=== PATIENT | male | born 1980 | race American Indian/Alaskan Native ===

== ENCOUNTER 2021-06-05 21:19 | Emergency (ER) | payer SELFPAY ==
--- NOTE | 2021-06-05 22:02 | Emergency Department Report ---
ED Psych HPI - General Stated Complaint: SHUN EVAL Time Seen by Provider: 06/05/21 21:44 Source: patient - History of Present Illness Initial Comments: Patient is 40 years old male with history of schizoaffective disorder. Patient brought to the emergency room for evaluation of suicidal thoughts. Patient stated that he is hearing voices asking him to kill himself. Patient stated that he does not have a specific plan but he cut his wrist before. Patient denied any visual hallucination. No homicidal ideation. MD Complaint: suicidal ideation, feels depressed -: days(s) Associated Psychiatric Symptoms: depression, suicidal ideation, auditory halluc inations Quality: constant Associated Symptoms: denies other symptoms If Self Harm: admits thoughts of - Related Data Allergies Allergy/AdvReac Type Severity Reaction Status Date / Time No Known Allergies Allergy Verified 06/05/21 22:10 ED Review of Systems ROS: Stated complaint: SHUN EVAL Other details as noted in HPI Comment: All other systems reviewed and negative Constitutional: denies: chills, fever Respiratory: denies: cough, shortness of breath, SOB with exertion Cardiovascular: denies: chest pain, palpitations Gastrointestinal: denies: abdominal pain, nausea, vomiting Musculoskeletal: denies: back pain Neurological: denies: weakness Psychiatric: depression, auditory hallucinations, suicidal thoughts. denies: visual hallucinations, homicidal thoughts ED Physical Exam - General General appearance: alert, in no apparent distress - Head Head exam: Present: atraumatic, normocephalic, normal inspection - Eye Eye exam: Present: normal appearance - ENT ENT exam: Present: normal exam, normal orophraynx, mucous membranes moist - Neck Neck exam: Present: normal inspection, full ROM. Absent: tenderness, meningismus - Respiratory Respiratory exam: Present: normal lung sounds bilaterally - Cardiovascular Cardiovascular Exam: Present: regular rate, normal rhythm, normal heart sounds - GI/Abdominal GI/Abdominal exam: Present: soft - Back Exam Back exam: Present: normal inspection, full ROM. Absent: CVA tenderness (R), CVA tenderness (L) - Neurological Exam Neurological exam: Present: alert, oriented X3, CN II-XII intact, normal gait, reflexes normal. Absent: motor sensory deficit - Psychiatric Psychiatric exam: Present: depressed, suicidal ideation. Absent: homicidal ideation - Skin Skin exam: Present: warm, intact, normal color ED Course Vital Signs 06/05/21 06/06/21 06/06/21 22:06 02:52 11:42 Temperature 98.3 F 98.6 F 97.3 F L Pulse Rate 88 70 69 Respiratory 17 16 20 Rate Blood Pressure 102/68 123/83 126/84 [Left] O2 Sat by Pulse 97 96 96 Oximetry 06/06/21 06/06/21 06/07/21 16:22 20:30 02:09 Temperature 98.4 F 98.7 F Pulse Rate 74 63 Respiratory 16 16 Rate Blood Pressure 116/81 120/73 [Left] O2 Sat by Pulse 99 98 97 Oximetry 06/07/21 06/07/21 08:12 13:23 Temperature 98.6 F Pulse Rate 76 Respiratory 18 Rate Blood Pressure 122/87 [Left] O2 Sat by Pulse 99 100 Oximetry ED Medical Decision Making - Lab Data Result diagrams: 06/05/21 22:26 06/05/21 22:26 Critical care attestation.: If time is entered above; I have spent that time in minutes in the direct care of this critically ill patient, excluding procedure time. ED Disposition Clinical Impression: Suicidal ideation Disposition: [address] [place] [address] Is pt being admited?: No Condition: Stable Additional Instructions: Professional and Agency Contacts To help [facility] (27/03) [place] Crisis Line: Suicide Prevention Line: Crisis Text Line: Text START to 655854 Emergency: 911 Outpatient [facility] Behavioral Health Resources: [place]: [facility] [address], [place] [address] [facility] [address] [place] [address] Monday thru Monday - 8am - 5pm Call to schedule an assessment for mental health and substance abuse programs [facility] Address: [address] [place] [address] Monday thru Monday- 7am-2pm [facility] Address: [address] [place] [address] Monday thru Monday: 8:30AM-5PM Referrals: PRIMARY CARE, [Primary Care Provider] - 3-5 Days
[2021-06-05 22:50] LABS: Basophils # (Auto) 0.1 K/mm3 (0.0-0.1); Basophils % (Auto) 0.7 % (0.0-1.8); Eosinophils # (Auto) 0.2 K/mm3 (0.0-0.4); Eosinophils % (Auto) 1.9 % (0.0-4.3); Hematocrit 45.3 % (35.5-45.6); Lymphocytes # (Auto) 3.7 K/mm3 (1.2-5.4); Lymphocytes % (Auto) 43.4 % (13.4-35.0); Mean Corpuscular HGB Conc 33 % (32-34); Mean Corpuscular Volume 88 fl (84-94); Monocytes # (Auto) 0.6 K/mm3 (0.0-0.8); Monocytes % (Auto) 7.6 % (0.0-7.3); Platelet Count 251 K/mm3 (140-440); Red Blood Count 5.15 M/mm3 (3.65-5.03); Red Cell Distribution Width 15.4 % (13.2-15.2)
[2021-06-05 23:02] LABS: Alanine Aminotransferase 11 units/L (7-56); Albumin 4.4 g/dL (3.9-5); BUN/Creatinine Ratio 10; Blood Urea Nitrogen 10 mg/dL (9-20); Calcium 9.5 mg/dL (8.4-10.2); Hemolysis Index 13
[2021-06-05 23:03] LABS: Bilirubin,Direct < 0.2 mg/dL (0-0.2)
[2021-06-06 02:20] LABS: Bacteria,Urine 1+ /HPF (Negative); Bilirubin,Urine SM (Negative); Blood,Urine NEG (Negative); Color,Urine Amber (Yellow); Mucus,Urine 1+ /HPF
[2021-06-06 02:27] LABS: Amphetamine Screen,Urine PRESUMPTIVE NEGATIVE; Benzodiazepines Screen,Urine PRESUMPTIVE NEGATIVE; Cannabinoid Screen,Urine PRESUMPTIVE POSITIVE; Cocaine Screen,Urine PRESUMPTIVE POSITIVE; Methadone Screen,Urine PRESUMPTIVE NEGATIVE; Opiate Screen,Urine PRESUMPTIVE NEGATIVE
[2021-06-06 02:32] LABS: Ictotest,Urine Negative (Negative)
--- NOTE | 2021-06-06 09:56 | Consultation ---
History of Present Illness - Reason for Consult Consult date: 06/06/21 Reason for consult: Mental health evaluation - History of Present Psychiatric Illness Per ED Note: Patient is 40 years old male with history of schizoaffective disorder. Patient brought to the emergency room for evaluation of suicidal thoughts. Patient stated that he is hearing voices asking him to kill himself. Patient stated that he does not have a specific plan but he cut his wrist before. Patient denied any visual hallucination. No homicidal ideation. Timur Hernandez is a 40 year old male with history of Bipolar, Schizoaffective who present to the ED for mental health evaluation. In my interview with the patient, he is in seclusion and verbally aggressive. The patient is angry and loud, he states " I'm trying to ask for help; I live in [facility] moved here a couple of months ago." The patient endorses suicidal ideation without a specific plan. He denies hallucinations. Psych History Diagnoses: Bipolar, Schizoaffective Suicide attempts or Self-harm behavior:Unknown Prior psychiatric hospitalizations: Yes Substance Abuse history:Unknown Previous psychiatric medications tried:Thorazine " many" Outpatient treatment: Denies PAST MEDICAL HISTORY: none reported Family Psychiatric History: None reported or documented SOCIAL HISTORY Marital Status: Single Living Arrangements: homeless Employment Status:unemployed Access to guns/weapons: unknown Education: 12th grade History of Abuse: Denies Legal History: None reported REVIEW OF SYSTEMS Constitutional: Negative for weight loss ENT: Negative for stridor Respiratory: Negative for cough or hemoptysis All other systems reviewed and are negative MENTAL STATUS EXAMINATION General Appearance and Behavior: Age appropriate, good hygiene, wearing appropriate clothes, sleeping, cooperative Cooperation: aggressive Psychomotor Behavior: unremarkable and within normal limits Mood: Angry Affect and affective range: congruent with mood Thought Process:Goal directed Thought Content: Suicidal Speech: Normal volume, Regular rate and rhythm, Suicidal Ideation: Yes Homicidal Ideation:Denies Hallucinations:Yes- Denies Delusions: None elicited Impulse Control: Questionable Insight and Judgment: Limited insight and poor judgment, Memory: Normal, Attention: Normal Orientation: Alert, oriented Assessment and Plan (1)Schizoaffective disorder, Bipolar type- F25.0 Treatment plan Continue 1013 Start Zyprexa 10mg Start Depakote 250mg po BID Risks, benefits and alternatives of medications discussed with the patient, questions answered and consent obtained from patient. PSYCHOTHERAPY: Supportive psychotherapy provided MEDICAL: Per primary team DELIRIUM PRECAUTIONS: Please re-orient patient frequently, keep lights on during the day, and minimize benzodiazepines and opiates as these medications could worsen patient's confusion. WEB SITE DEVELOPER: Defer to primary Disposition: Recommend acute psychiatric inpatient treatment. Will follow. Thank you for the consult. Please contact with any questions and/or concerns. Case staffed with Dr. Arroyo Medications and Allergies Allergies Allergy/AdvReac Type Severity Reaction Status Date / Time No Known Allergies Allergy Verified 06/05/21 22:10 Mental Status Exam - Vital signs Last Vital Signs Temp 98.6 F 06/06/21 02:52 Pulse 70 06/06/21 02:52 Resp 16 06/06/21 02:52 BP 123/83 06/06/21 02:52 Pulse Ox 96 06/06/21 02:52 Results Result Diagrams: 06/05/21 22:26 06/05/21 22:26 Abnormal lab results 06/05/21 06/05/21 06/05/21 Range/Units 22:26 22:26 22:26 RBC 5.15 H (3.65-5.03) M/mm3 RDW 15.4 H (13.2-15.2) % Lymph % (Auto) 43.4 H (13.4-35.0) % [place] % (Auto) 7.6 H (0.0-7.3) % Ur Specific [place] (1.003-1.030) Salicylates < 0.3 L (2.8-20.0) mg/dL Acetaminophen 5.0 L (10.0-30.0) ug/mL Plasma/Serum Alcohol (0-0.07) % 06/05/21 06/06/21 Range/Units 22:26 00:30 RBC (3.65-5.03) M/mm3 RDW (13.2-15.2) % Lymph % (Auto) (13.4-35.0) % [place] % (Auto) (0.0-7.3) % Ur Specific [place] 1.032 H (1.003-1.030) Salicylates (2.8-20.0) mg/dL Acetaminophen (10.0-30.0) ug/mL Plasma/Serum Alcohol 0.08 H (0-0.07) % All other labs normal.
[2021-06-06] MEDS ORDERED: diphenhydrAMINE 50 MG/ML VIAL IM PRN (10:38)
[2021-06-06] MEDS ORDERED: HALOPERIDOL LACTATE 5 MG/1 ML INJ IM PRN (10:38)
[2021-06-06] MEDS ORDERED: LORazepam 2 MG/ML VIAL IM PRN (10:38)
--- NOTE | 2021-06-06 10:38 | Event Note ---
Date: 06/06/21 S: Patient reportedly became verbally abusive to staff this morning at approximately 07: 00 when inquiring about breakfast. The patient had to be placed in seclusion O: Vital Signs - 24 hr 06/06/21 06/06/21 06/06/21 11:42 16:22 20:30 Temperature 97.3 F L 98.4 F Pulse Rate 69 74 Respiratory 20 16 Rate Blood Pressure 126/84 116/81 [Left] O2 Sat by Pulse 96 99 98 Oximetry A: Schizoaffective disorder, bipolar disorder P: 1013/awaiting inpatient psych. Will order as needed meds for agitation
[2021-06-06] MEDS: DIVALPROEX DR 250 MG TAB PO SCH ×2 (12:23→22:20)
[2021-06-07 08:14] VITALS: BP 122/87
--- NOTE | 2021-06-07 10:32 | Progress Note ---
Subjective - Reason for Consult Consult date: 06/07/21 Reason for consult: SI - Chief Complaint Chief complaint: The patient was seen resting quietly. He reports feeling better. The patient continues to endorse suicidal ideation without a plan. He denies homicidal ideation and denies hallucinations. REVIEW OF SYSTEMS Constitutional: Negative for weight loss ENT: Negative for stridor Respiratory: Negative for cough or hemoptysis All other systems reviewed and are negative MENTAL STATUS EXAMINATION General Appearance and Behavior: Age appropriate, good hygiene, wearing appropriate clothes, sleeping, cooperative Cooperation: aggressive Psychomotor Behavior: unremarkable and within normal limits Mood: "OK Affect and affective range: congruent with mood Thought Process:Goal directed Thought Content: Suicidal Speech: Normal volume, Regular rate and rhythm, Suicidal Ideation: Yes Homicidal Ideation:Denies Hallucinations:Yes- Denies Delusions: None elicited Impulse Control: Questionable Insight and Judgment: Limited insight and poor judgment, Memory: Normal, Attention: Normal Orientation: Alert, oriented Assessment and Plan (1)Schizoaffective disorder, Bipolar type- F25.0 Treatment plan Continue 1013 Continue Zyprexa 10mg Continue Depakote 250mg po BID Risks, benefits and alternatives of medications discussed with the patient, questions answered and consent obtained from patient. PSYCHOTHERAPY: Supportive psychotherapy provided MEDICAL: Per primary team DELIRIUM PRECAUTIONS: Please re-orient patient frequently, keep lights on during the day, and minimize benzodiazepines and opiates as these medications could worsen patient's confusion. SENIOR SECURITY ANALYST: Defer to primary Disposition: Recommend acute psychiatric inpatient treatment. Will follow. Thank you for the consult. Please contact with any questions and/or concerns. Case staffed with Dr. Arroyo Mental Status Exam - Vital signs Last Vital Signs Temp 98.6 F 06/07/21 08:12 Pulse 76 06/07/21 08:12 Resp 18 06/07/21 08:12 BP 122/87 06/07/21 08:12 Pulse Ox 99 06/07/21 08:12
--- NOTE | 2021-06-07 10:42 | Event Note ---
Date: 06/07/21 S: No events reported overnight O: Vital Signs - 24 hr 06/06/21 06/06/21 06/06/21 11:42 16:22 20:30 Temperature 97.3 F L 98.4 F Pulse Rate 69 74 Respiratory 20 16 Rate Blood Pressure 126/84 116/81 [Left] O2 Sat by Pulse 96 99 98 Oximetry 06/07/21 06/07/21 02:09 08:12 Temperature 98.7 F 98.6 F Pulse Rate 63 76 Respiratory 16 18 Rate Blood Pressure 120/73 122/87 [Left] O2 Sat by Pulse 97 99 Oximetry A: Schizoaffective disorder, bipolar disorder PE: 1013/awaiting inpatient psych
[2021-06-07] MEDS: DIVALPROEX DR 250 MG TAB PO SCH (11:08)
== END 2021-06-07 17:55 ==
LOC: ED 21:19 → EEVIPCON 21:19 → ED 06-07 17:55
DX: R45.851 Suicidal ideations (principal); Z20.822 Contact with and (suspected) exposure to COVID-19
CPT/HCPCS: 36415; 80048; 80076; 80307; 81001; 85025; 99285; U0003; 80320; G0480